=== PATIENT | male | born 1960 | race Caucasian/White ===

== ENCOUNTER 2024-02-12 09:53 | Outpatient (CLI) | payer BC ==
[2024-02-12] MEDS ORDERED: Magnevist 469MG/ML 20 ML VIAL ONE (10:26)
== END 2024-02-12 09:54 | disposition home or self-care (01) ==
LOC: CSHMRI 09:53
PROVIDERS: ATTEND Family Medicine Sports Medicine
DX: M25.861 Other specified joint disorders, right knee (principal); R93.6 Abnormal findings on diagnostic imaging of limbs
CPT/HCPCS: 82565